=== PATIENT | female | born 1945 | race Caucasian/White ===

== ENCOUNTER 2016-04-27 10:05 | Emergency (ER) | payer MEDICARE ==
[2011-03-09 08:13] VITALS: BMI 30.9
[2016-04-27 10:53] LABS: BASOPHILS 0.2 % (0.0-2.0); EOSINOPHILS 2.6 % (0-7); HEMATOCRIT 41.6 % (36.0-48.0); IMMATURE GRANULOCYTES 0.2 % (0-5); LYMPHOCYTES 32.7 % (15-50); MCHC 33.7 g/dL (31.0-37.0); MCV 92.2 fL (80.0-100.0); MEAN PLATELET VOLUME 9.2 fL (7.4-10.4); MONOCYTES 5.4 % (2-11); NEUTROPHILS 58.9 % (40-80); PLATELET COUNT 294 10x3/uL (130-400); RBC 4.51 10x6/uL (4.00-5.40); RDW 12.2 % (11.5-14.5)
[2016-04-27 11:29] LABS: CALC OSMOLALITY 278 mosm/kg (275-300); CALCIUM 9.5 mg/dL (8.5-10.1); CARBON DIOXIDE 30.8 mmol/L (21.0-32.0); CHLORIDE - SERUM 103 mmol/L (98-107); CKMB 0.8 U/L (0.0-3.6); CREATINE KINASE 98 UL (21-215); GLUCOSE 86 mg/dL (74-106); POTASSIUM - SERUM 3.9 mmol/L (3.5-5.1); PRO BNP 145 pg/mL (0-125); SODIUM 141 mmol/L (136-145); TROPONIN-I < 0.017 ng/mL (0.000-0.060); UREA NITROGEN 9 mg/dL (7-18); eGFR NON AFRICAN AMERICAN 58 mL/min (90-120)
== END 2016-04-27 12:00 | disposition home or self-care (01) ==
LOC: D.ER 10:05
PROVIDERS: Nurse Practitioner Acute Care
DX: J20.9 Acute bronchitis, unspecified (principal); E11.9 Type 2 diabetes mellitus without complications; E78.00 Pure hypercholesterolemia, unspecified; F17.200 Nicotine dependence, unspecified, uncomplicated

== ENCOUNTER 2019-01-29 08:00 | Outpatient (CLI) | payer OTHER, MEDICAID ==
[2011-03-09 08:13] VITALS: BMI 30.9
== END 2019-01-29 23:59 | disposition home or self-care (01) ==
LOC: D.MAMMO 08:00
PROVIDERS: ATTEND Family Medicine
DX: Z12.31 Encounter for screening mammogram for malignant neoplasm of breast (principal)

== ENCOUNTER → 2019-03-07 13:00 | Outpatient (CLI) | payer OTHER ==
[2011-03-09 08:13] VITALS: BMI 30.9
== END | disposition home or self-care (01) ==
LOC: D.MAMMO 13:00
PROVIDERS: ATTEND Family Medicine
DX: R92.8 Other abnormal and inconclusive findings on diagnostic imaging of breast (principal)

== ENCOUNTER → 2019-04-05 12:17 | Outpatient (CLI) | payer OTHER ==
[2011-03-09 08:13] VITALS: BMI 30.9
== END | disposition home or self-care (01) ==
LOC: D.MAMMO 08:00
PROVIDERS: ATTEND Family Medicine
DX: R92.8 Other abnormal and inconclusive findings on diagnostic imaging of breast (principal)